=== PATIENT | male | born 1995 | race Caucasian/White ===

== ENCOUNTER → 2019-03-30 | Outpatient (REF) | payer BC | LOC: ZZSENDIN 11:07 | PROVIDERS: ATTEND Family Medicine | DX: N50.812 Left testicular pain (principal) | CPT/HCPCS: 81001; 87491; 87591 ==

== ENCOUNTER → 2019-04-05 | Outpatient (CLI) | payer BC ==
--- NOTE | 2019-04-05 16:52 | RADIOLOGY IMAGING REPORT ---
FACILITY: [facility] PATIENT NAME: Remberto Mcguire : 1995 MR: [id number] V: [id number] EXAM DATE: ORDERING PHYSICIAN: GALILEO ZHENG TECHNOLOGIST: Location: [facility] Patient: Remberto Mcguire : 1995 Visit/Account:[id number] Date of Sevice: 04/05/2019 SCROTAL ULTRASOUND INDICATION: Bilateral groin pain and left testicular pain COMPARISON: None available. FINDINGS: Right testicle measures 3.5 x 1.8 x 2.3 cm in cc, AP, and transverse dimensions respectively. There is normal arterial and venous blood flow. There is a small hydrocele No varicocele is identified. The right epididymal head measures 0.9 cm. Two small epididymal head cysts are present. Left testicle measures 3.6 x 1.8 x 2.5 cm in cc, AP, and transverse dimensions respectively. There is normal arterial and venous blood flow. There is a small hydrocele present There is a small varicocele present that worsens with Valsalva The left epididymal head measures 1.0 cm. There is a small 4 mm epididymal head cyst The bilateral testicles appear homogenous in echogenicity. IMPRESSION: 1. Small hydroceles are present and on the left, there is a small varicocele. No acute abnormalitie s identified. The testes are symmetric in echotexture Report Dictated By: Olvin Herrera at 04/05/2019 4:41 PM Report E-Signed By: Olvin Herrera at 04/05/2019 4:48 PM [id number]
--- NOTE | 2019-04-05 16:54 | RADIOLOGY IMAGING REPORT ---
FACILITY: [facility] PATIENT NAME: Remberto cMguire : 1995 MR: [id number] V: [id number] EXAM DATE: ORDERING PHYSICIAN: GALILEO ZHENG TECHNOLOGIST: Location: Patient: Remberto Mcguire : 1995 Visit/Account:[id number] Date of Sevice: 04/05/2019 Exam: US GROIN Indication: Bilateral groin pain, Comparison: None available Findings: Focused superficial ultrasound of the left and right inguinal areas demonstrate no evidence of hernia. No abnormal masses or fluid collections are identified. Fascial planes are intact. There are scattered bilateral normal-appearing lymph nodes. IMPRESSION: 1. No evidence of inguinal hernia bilaterally Report Dictated By: Olvin Herrera at 04/05/2019 4:48 PM Report E-Signed By: Olvin Herrera at 04/05/2019 4:51 PM WSN:[id number]
== END ==
LOC: US 00:14
PROVIDERS: ATTEND Family Medicine
DX: N43.2 Other hydrocele (principal)
CPT/HCPCS: 76705; 76870